=== PATIENT | male | born 1990 | race Caucasian/White ===

== ENCOUNTER 2021-11-13 02:41 | Emergency (ER) | payer BC ==
[~2021-11-13] VITALS: Ht 180.3 cm; Wt 100.0 kg
[~2021-11-13 02:41] MED LIST: CARAFATE 1GM1 G PO; FLEXERIL 1010 MG/TAB PO; NO HOME MEDICATIONS; NORCO 325 MG-51 TAB PO; PEPCID 20MG TAB20 MG PO; VOLTAREN 75 DR75 MG PO
[2021-11-13 02:54] VITALS: TEMP 98
[2021-11-13 03:35] VITALS: BP 135/96; PULSE 75
== END 2021-11-13 03:35 | disposition home or self-care (01) ==
LOC: COL.ER 02:41
DX: U07.1 COVID-19 (principal); Z28.310 Unvaccinated for COVID-19

== ENCOUNTER 2022-02-26 21:25 | Emergency (ER) | payer BC ==
[~2022-02-26] VITALS: Ht 180.3 cm; Wt 90.9 kg
[2022-02-26 21:49] VITALS: BP 157/93; PULSE 79; TEMP 98.1
[2022-02-26 22:34] LABS: BASO % 0.4 % (0.0-2.0); EOS % 0.3 % (0.0-4.0); GRAN # 5.4 K/mm3 (1.4-6.5); GRAN % 60.4 % (42.2-75.2); HEMATOCRIT 44.1 % (42.0-52.0); HEMOGLOBIN 15.6 g/dl (13.5-18.0); LYMPH # 2.7 K/mm3 (1.2-3.4); LYMPH % 30.3 % (20.0-51.0); MEAN CELL VOLUME 81 fl (80.0-100.0); MEAN CORPUSCULAR HEMOGLOBIN 29 pg (27-31); MEAN CORPUSCULAR HGB CONC 35 g/dl (33.0-37.0); MONO # 0.7 K/mm3 (0.1-0.6); MONO % 8.2 % (1.7-9.3); PLATELET COUNT 265 K/mm3 (130-400); RED BLOOD COUNT 5.48 M/mm3 (4.20-5.60); REDCELL DISTRIBUTION WIDTH-CV 12.8 % (11.5-14.5)
[2022-02-26 23:06] LABS: ALBUMIN 4.1 gm/dL (3.5-5.0); BILIRUBIN,TOTAL 0.7 mg/dL (0.2-1.2); CREATININE, serum 1.27 mg/dL (0.72-1.25); POTASSIUM 3.3 mmol/L (3.5-4.5); TOTAL PROTEIN 6.4 gm/dL (6.2-8.1)
== END 2022-02-27 00:10 | disposition home or self-care (01) ==
LOC: COL.ER 21:25
PROVIDERS: Physician Assistant
DX: F41.9 Anxiety disorder, unspecified (principal); E87.6 Hypokalemia; F17.210 Nicotine dependence, cigarettes, uncomplicated; Z28.310 Unvaccinated for COVID-19

== ENCOUNTER 2022-06-21 14:44 | Emergency (ER) | payer OTHER ==
[~2022-06-21] VITALS: Ht 177.8 cm; Wt 88.6 kg
[2022-06-21 15:04] VITALS: TEMP 98.1
[2022-06-21] MEDS ORDERED: CEPHALEXIN500 M1 PO (17:16)
[2022-06-21 18:08] VITALS: BP 132/81; PULSE 88
== END 2022-06-21 18:09 | disposition home or self-care (01) ==
LOC: COL.ER 14:44
DX: S61.217A Laceration without foreign body of left little finger without damage to nail, initial encounter (principal); Z28.310 Unvaccinated for COVID-19; W27.8XXA Contact with other nonpowered hand tool, initial encounter; Y92.59 Other trade areas as the place of occurrence of the external cause; Y99.0 Civilian activity done for income or pay